=== PATIENT | female | born 1980 | race Caucasian/White ===

== ENCOUNTER 2017-11-27 16:13 | Inpatient (IN) | payer OTHER ==
[~2017-11-27] VITALS: Ht 162.5 cm; Wt 66.5 kg
--- NOTE | ~2017-11-27 | O ---
[place], [place] OPERATIVE NOTE NAME: GILBERTO DE LA TORRE UNIT #: [id number] ROOM: 421 DOCTOR: ARIADNA LO,SOLOMON BIRTHDATE: [birth year] DOS: 11/29/2017 HISTORY OF PRESENT ILLNESS: The patient is a 37-year-old patient who presented to Emergency Room and admitted for severe anemia, guaiac positivity, drop in H and H to 6 and 21. PROCEDURE: Today's procedure part of investigation is panendoscopy plus biopsy. PREMEDICATION: Propofol and Versed. SCOPE: Olympus forward-viewing gastroscope Q10 video. REPORT: After putting the patient in left lateral position and application of lubricant to the scope, the scope was introduced. Thereafter, under direct visualization, advanced through the length of esophagus without difficulty. Lower esophageal varicosity class B was noticed. It is located at 12 o'clock position. Gastritis; otherwise no active ulceration, no obstruction, no gastric varicosities was noticed. Duodenal bulb, second and third part within normal limit. Antral biopsy obtained for H. pylori. The patient extubated, tolerated procedure well. IMPRESSION: No active bleeding at the present time. Gastritis and esophageal varicosity as identified above This patient with a history of aggressive alcohol consumption with alcoholic hepatitis, cirrhosis and portal hypertension and thrombocytopenia, possible presence of ascites and urinary tract infection, exposed to spontaneous bacterial peritonitis as well. All has been recognized. PLAN AND DISCUSSION: We are going to continue with all the supportive medications for diuresis and detox as well as antibiotic coverage for her UTI. Cultures are pending. The definitive pathogen to be addressed. I thank you very much indeed for your kind referral. SOLOMON ROSENTHAL MD CM:OPRECORD:OPERATIVE NOTE [id number] SOLOMON ROSENTHAL MD 11/30/17 0412 interface
--- NOTE | ~2017-11-27 | CON ---
[place], [place] REPORT OF CONSULTATION NAME: GILBERTO DE LA TORRE UNIT #: [id number] ROOM: 421 DOCTOR: ARIADNA LOSOLOMON BIRTHDATE: [birth year] DOS: 11/29/2017 HISTORY OF PRESENT ILLNESS: This is a 37-year-old patient who is presented with a chief complaint of alcohol intoxication, GI bleed, has been admitted through the Emergency Room. The patient was found to have H and H of 7 and 24 with platelet of 96. Comprehensive metabolic panel, electrolytes, hypokalemia has been corrected. Liver function test, SGOT, SGPT of 101 and 103. Her known alcohol level was 149, confirmation of low H and H was undertaken. Her test negative. Troponins were mildly elevated. CBC was reassessed drop in H and H of 6.9 and 21 was noticed. The patient was transfused to 8 and 25 H and H. Comprehensive metabolic panel lately. Electrolytes balanced. Total bilirubin of 10 with SGOT and SGPT of 84 and 19 was noticed. Alkaline phosphatase 96. PAST MEDICAL HISTORY: Aggressive alcohol consumer, cirrhosis, portal hypertension, and esophageal varicosity history. PAST SURGICAL HISTORY: , mandibular surgery and podiatric surgery. SOCIAL HISTORY: Aggressive alcohol and nicotine consumer. FAMILY HISTORY: Noncontributory. ALLERGIES: To no known medications. MEDICATIONS: Medication list has been reviewed. She is on nadolol, spironolactone, thiamine, lactulose, furosemide, famotidine, folic acid, and all supportive care. REVIEW OF SYSTEMS: GENERAL: She is too lethargic to engage in communication. PHYSICAL EXAMINATION: VITAL SIGNS: Stable. HEENT: Head normocephalic, nontraumatic. Eyes deep sclerae icterus was noticed. Mouth and buccal mucosa benign. NECK: Supple neck. LUNGS: No wheeze, no rhonchi. HEART: Normal sinus rhythm. No gallop, no murmur. ABDOMEN: Slightly protuberant, bowel sounds present. Possibility of ascites has to be considered. Umbilical anatomy a slightly protruded. EXTREMITIES: No cyanosis. No pedal edema. NEUROLOGIC: Alert and slow orientation. IMPRESSION: Encephalopathic. Her right flank, superior to her buttock, there is a scar of previous possible trauma secondary to a falling was noticed with a skin abrasion. Chest x-ray and rib x-ray, left basilar atelectasis cannot be ruled out. PLAN AND DISCUSSION: The patient with GI bleed, drop in H and H, status post [place], [place] REPORT OF CONSULTATION NAME: GILBERTO DE LA TORRE UNIT #: [id number] ROOM: [facility] [place] DOCTOR: ARIADNA OL,SOLOMON BIRTHDATE: [birth year] transfusion, thrombocytopenia, cirrhosis secondary to alcohol chronic consumption. We are going to proceed with endoscopic assessment of upper GI tract to ensure there is no active bleeding in upper tract. SOLOMON ROSENTHAL MD CM:CONSTR:REPORT OF CONSULTATION 1646 11/30/17 0406 interface
[2017-11-27 16:21] VITALS: BP 113/65
[2017-11-27 17:09] LABS: BASO # 0.1 10*3/uL (0.0-0.1); BASO % 0.7 % (0.0-1.0); EOS % 0.3 % (1.0-4.0); HEMATOCRIT 24.2 % (37.0-47.0); HEMOGLOBIN 7.9 g/dl (12.0-16.0); LYMPH # 2.1 10*3/uL (1.3-4.4); MEAN CELL VOLUME 104.8 fl (81.0-99.0); MEAN CORPUSCULAR HGB 34.2 pg (27.0-31.0); MEAN CORPUSCULAR HGB CONC 32.6 g/dl (33.0-37.0); MEAN PLATELET VOLUME 9.6 fl (9.6-12.3); MONO # 1.3 10*3/uL (0.1-1.0); MONO % 12.6 % (3.0-9.0); NEUT # 6.5 10*3/uL (2.3-7.9); NEUT % 64.8 % (47.0-73.0); PLATELET COUNT AUTOMATED 96 10*3/uL (130-400); RED BLOOD COUNT 2.31 10*6/uL (4.10-5.10); RED CELL DISTRI WIDTH 15.9 % (0-14.5)
[2017-11-27 17:24] LABS: ALBUMIN 1.8 gm/dl (3.1-4.5); ALKALINE PHOSPHATASE 115 U/L (45-117); BUN 5 mg/dl (7-24); CHLORIDE 93 mmol/L (98-107); CREATININE 0.58 mg/dL (0.55-1.02); SGOT/AST 101 IU/L (3-35); SGPT/ALT 23 U/L (12-78); SODIUM 138 mmol/L (136-145)
[2017-11-27 17:32] LABS: POTASSIUM 2.4 mmol/L (3.5-5.1)
[2017-11-27 17:36] VITALS: BP 108/61
[2017-11-27 18:07] VITALS: BP 125/53
[2017-11-27] MEDS ORDERED: CONSTULOSE10 GM/151 PO (18:36)
[2017-11-27] MEDS ORDERED: CALCIUM CARB500 MG PO (18:37)
[2017-11-27] MEDS ORDERED: VITAMIN B-1100 M1 PO (18:38)
[2017-11-27] MEDS ORDERED: DAILY VITE1 EACH PO (18:38)
[2017-11-27] MEDS ORDERED: ATARAX,VISTARIL10 MG PO (18:39)
[2017-11-27] MEDS ORDERED: LASIX20 MG PO (18:39)
[2017-11-27] MEDS ORDERED: PEPCID40 MG PO (18:41)
[2017-11-27] MEDS ORDERED: NADOLOL20 MG PO (18:41)
[2017-11-27] MEDS ORDERED: NATURE'S BLEND F1 MG PO (18:42)
[2017-11-27] MEDS ORDERED: FERRETTS325 M1 PO (18:43)
[2017-11-27] MEDS ORDERED: MELATONIN10 M4 PO (18:43)
[2017-11-27] MEDS ORDERED: SPIRONOLACTONE25 MG PO (18:45)
[2017-11-27] MEDS ORDERED: SERTRALINE HYDR25 MG PO (18:46)
[2017-11-27 18:58] LABS: BASO # 0.1 10*3/uL (0.0-0.1); BASO % 0.6 % (0.0-1.0); EOS % 0.2 % (1.0-4.0); HEMATOCRIT 22.6 % (37.0-47.0); HEMOGLOBIN 7.4 g/dl (12.0-16.0); LYMPH # 1.8 10*3/uL (1.3-4.4); LYMPH % 20.5 % (27.0-41.0); MEAN CELL VOLUME 105.6 fl (81.0-99.0); MEAN CORPUSCULAR HGB 34.6 pg (27.0-31.0); MEAN CORPUSCULAR HGB CONC 32.7 g/dl (33.0-37.0); MEAN PLATELET VOLUME 9.9 fl (9.6-12.3); MONO % 11.5 % (3.0-9.0); NEUT # 5.8 10*3/uL (2.3-7.9); NEUT % 66.7 % (47.0-73.0); PLATELET COUNT AUTOMATED 87 10*3/uL (130-400); RED BLOOD COUNT 2.14 10*6/uL (4.10-5.10); WHITE BLOOD COUNT 8.7 10*3/uL (4.8-10.8)
[2017-11-27 19:10] LABS: INTERNATIONAL NORM RATIO 2.2 (2.0-3.5)
[2017-11-27 19:14] LABS: ALBUMIN 1.8 gm/dl (3.1-4.5); ALKALINE PHOSPHATASE 107 U/L (45-117); BUN 5 mg/dl (7-24); CHLORIDE 96 mmol/L (98-107); CREATININE 0.53 mg/dL (0.55-1.02); POTASSIUM 2.7 mmol/L (3.5-5.1); SGOT/AST 97 IU/L (3-35); SGPT/ALT 21 U/L (12-78); SODIUM 139 mmol/L (136-145); TOTAL PROTEIN 6.6 gm/dL (6.4-8.2)
[2017-11-27 19:15] LABS: BILIRUBIN 3+ (NEGATIVE); BLOOD 3+ (NEGATIVE); CLARITY CLOUDY (CLEAR); COLOR YELLOW (YELLOW); GLUCOSE NEGATIVE (NEGATIVE); KETONE TRACE (NEGATIVE); LEUKO ESTERASE TRACE (NEGATIVE); NITRITE POSITIVE (NEGATIVE); PH 6.5 (5.0-9.0); SPECIFIC GRAVITY 1.015 (1.005-1.030)
[2017-11-27 19:20] LABS: BACTERIA 4+
[2017-11-27 19:21] LABS: RBC 51-100 rbc/hpf (0-2); WBC 51-100 wbc/hpf (0-5)
[2017-11-27 19:24] LABS: URINE AMPHETAMINES < 1000 (1000ng/ml); URINE BARBITURATES < 200 (200ng/ml); URINE BENZODIAZEPINES < 200 (200ng/ml); URINE CANNABINOIDS (THC) < 50 (50ng/ml); URINE COCAINE < 300 (300ng/ml); URINE METHADONE < 300 (300ng/ml); URINE OPIATES < 300 (300ng/ml)
[2017-11-27 19:27] LABS: URINE PHENCYCLIDINE < 25 (25ng/ml)
[2017-11-27 20:00] VITALS: BP 115/56
[2017-11-28] VITALS (11 sets, daily range): BP systolic 106–144; BP diastolic 56–92
[2017-11-28 03:24] LABS: BASO % 0.5 % (0.0-1.0); EOS % 0.3 % (1.0-4.0); HEMATOCRIT 21.1 % (37.0-47.0); HEMOGLOBIN 6.9 g/dl (12.0-16.0); LYMPH # 1.9 10*3/uL (1.3-4.4); LYMPH % 25.3 % (27.0-41.0); MEAN CELL VOLUME 105.5 fl (81.0-99.0); MEAN CORPUSCULAR HGB 34.5 pg (27.0-31.0); MEAN CORPUSCULAR HGB CONC 32.7 g/dl (33.0-37.0); MONO # 0.7 10*3/uL (0.1-1.0); MONO % 9.4 % (3.0-9.0); NEUT # 4.9 10*3/uL (2.3-7.9); NEUT % 64.1 % (47.0-73.0); PLATELET COUNT AUTOMATED 85 10*3/uL (130-400); RED CELL DISTRI WIDTH 15.9 % (0-14.5); WHITE BLOOD COUNT 7.6 10*3/uL (4.8-10.8)
[2017-11-28 03:30] LABS: BUN 6 mg/dl (7-24); CHLORIDE 99 mmol/L (98-107); CREATININE 0.57 mg/dL (0.55-1.02); POTASSIUM 2.6 mmol/L (3.5-5.1); SODIUM 141 mmol/L (136-145)
[2017-11-28 12:54] LABS: BASO # 0.1 10*3/uL (0.0-0.1); BASO % 0.9 % (0.0-1.0); EOS # 0.1 10*3/uL (0.0-0.4); EOS % 0.6 % (1.0-4.0); HEMATOCRIT 23.4 % (37.0-47.0); MEAN CORPUSCULAR HGB 34.8 pg (27.0-31.0); MEAN CORPUSCULAR HGB CONC 34.2 g/dl (33.0-37.0); MEAN PLATELET VOLUME 10.6 fl (9.6-12.3); MONO # 1.1 10*3/uL (0.1-1.0); MONO % 13.5 % (3.0-9.0); NEUT # 4.7 10*3/uL (2.3-7.9); NEUT % 59.4 % (47.0-73.0); PLATELET COUNT AUTOMATED 75 10*3/uL (130-400); RED CELL DISTRI WIDTH 18.5 % (0-14.5); WHITE BLOOD COUNT 7.9 10*3/uL (4.8-10.8)
[2017-11-28 12:55] LABS: MEAN CELL VOLUME 101.7 fl (81.0-99.0)
[2017-11-29] VITALS (8 sets, daily range): BP systolic 96–110; BP diastolic 38–60
[2017-11-29 07:06] LABS: BASO # 0.1 10*3/uL (0.0-0.1); BASO % 0.8 % (0.0-1.0); EOS # 0.1 10*3/uL (0.0-0.4); EOS % 0.8 % (1.0-4.0); HEMATOCRIT 25.1 % (37.0-47.0); HEMOGLOBIN 8.3 g/dl (12.0-16.0); LYMPH # 2.1 10*3/uL (1.3-4.4); LYMPH % 23.1 % (27.0-41.0); MEAN CELL VOLUME 102.9 fl (81.0-99.0); MEAN CORPUSCULAR HGB CONC 33.1 g/dl (33.0-37.0); MEAN PLATELET VOLUME 10.9 fl (9.6-12.3); MONO # 0.9 10*3/uL (0.1-1.0); MONO % 9.8 % (3.0-9.0); NUCLEATED RED BLOOD CELL 0.2 % (0.0-0.0); PLATELET COUNT AUTOMATED 80 10*3/uL (130-400); RED BLOOD COUNT 2.44 10*6/uL (4.10-5.10); RED CELL DISTRI WIDTH 18.7 % (0-14.5); WHITE BLOOD COUNT 9.3 10*3/uL (4.8-10.8)
[2017-11-29 07:36] LABS: ALBUMIN 1.6 gm/dl (3.1-4.5); ALKALINE PHOSPHATASE 96 U/L (45-117); BUN 7 mg/dl (7-24); CHLORIDE 101 mmol/L (98-107); CREATININE 0.75 mg/dL (0.55-1.02); POTASSIUM 3.5 mmol/L (3.5-5.1); SGOT/AST 84 IU/L (3-35); SGPT/ALT 19 U/L (12-78); SODIUM 141 mmol/L (136-145); TOTAL PROTEIN 6.5 gm/dL (6.4-8.2)
[2017-11-29 07:46] LABS: INTERNATIONAL NORM RATIO 2.1 (2.0-3.5)
[2017-11-30] VITALS: BP 107/54
[2017-11-30 06:49] LABS: BASO # 0.1 10*3/uL (0.0-0.1); BASO % 0.7 % (0.0-1.0); EOS # 0.1 10*3/uL (0.0-0.4); EOS % 0.9 % (1.0-4.0); HEMATOCRIT 25.2 % (37.0-47.0); HEMOGLOBIN 8.2 g/dl (12.0-16.0); LYMPH # 2.2 10*3/uL (1.3-4.4); LYMPH % 23.7 % (27.0-41.0); MEAN CELL VOLUME 104.1 fl (81.0-99.0); MEAN CORPUSCULAR HGB 33.9 pg (27.0-31.0); MEAN CORPUSCULAR HGB CONC 32.5 g/dl (33.0-37.0); MEAN PLATELET VOLUME 10.8 fl (9.6-12.3); MONO # 0.9 10*3/uL (0.1-1.0); MONO % 9.9 % (3.0-9.0); NEUT # 5.9 10*3/uL (2.3-7.9); PLATELET COUNT AUTOMATED 78 10*3/uL (130-400); RED BLOOD COUNT 2.42 10*6/uL (4.10-5.10); RED CELL DISTRI WIDTH 18.9 % (0-14.5); WHITE BLOOD COUNT 9.2 10*3/uL (4.8-10.8)
[2017-11-30 07:29] LABS: ALBUMIN 1.6 gm/dl (3.1-4.5); ALKALINE PHOSPHATASE 97 U/L (45-117); BUN 6 mg/dl (7-24); CHLORIDE 102 mmol/L (98-107); CREATININE 0.72 mg/dL (0.55-1.02); SGOT/AST 75 IU/L (3-35); SGPT/ALT 16 U/L (12-78); SODIUM 140 mmol/L (136-145); TOTAL PROTEIN 6.2 gm/dL (6.4-8.2)
[2017-11-30 08:00] VITALS: BP 112/57
[2017-11-30 12:00] VITALS: BP 108/54
[2017-11-30 16:00] VITALS: BP 102/57
[2017-11-30 20:00] VITALS: BP 110/72
[2017-12-01] VITALS: BP 102/60
[2017-12-01 07:02] LABS: BASO # 0.1 10*3/uL (0.0-0.1); BASO % 0.8 % (0.0-1.0); EOS # 0.1 10*3/uL (0.0-0.4); HEMATOCRIT 24.9 % (37.0-47.0); HEMOGLOBIN 8.1 g/dl (12.0-16.0); LYMPH # 1.7 10*3/uL (1.3-4.4); LYMPH % 19.3 % (27.0-41.0); MEAN CELL VOLUME 106.4 fl (81.0-99.0); MEAN CORPUSCULAR HGB 34.6 pg (27.0-31.0); MEAN CORPUSCULAR HGB CONC 32.5 g/dl (33.0-37.0); MEAN PLATELET VOLUME 10.8 fl (9.6-12.3); MONO # 1.2 10*3/uL (0.1-1.0); MONO % 12.9 % (3.0-9.0); NEUT # 5.9 10*3/uL (2.3-7.9); NEUT % 65.2 % (47.0-73.0); PLATELET COUNT AUTOMATED 75 10*3/uL (130-400); RED BLOOD COUNT 2.34 10*6/uL (4.10-5.10); RED CELL DISTRI WIDTH 18.9 % (0-14.5)
[2017-12-01 07:35] LABS: ALBUMIN 1.5 gm/dl (3.1-4.5); BUN 7 mg/dl (7-24); CHLORIDE 103 mmol/L (98-107); SGOT/AST 62 IU/L (3-35); SGPT/ALT 15 U/L (12-78); SODIUM 140 mmol/L (136-145)
[2017-12-01 07:37] LABS: ALKALINE PHOSPHATASE 107 U/L (45-117); CREATININE 0.87 mg/dL (0.55-1.02)
[2017-12-01 08:26] VITALS: BP 105/57
[2017-12-01 12:00] VITALS: BP 97/52
[2017-12-01 15:48] VITALS: BP 89/43
[2017-12-01 20:00] VITALS: BP 96/34
[2017-12-02] VITALS: BP 108/51
[2017-12-02 06:06] LABS: BASO # 0.1 10*3/uL (0.0-0.1); BASO % 0.6 % (0.0-1.0); EOS # 0.1 10*3/uL (0.0-0.4); EOS % 0.8 % (1.0-4.0); LYMPH # 2.4 10*3/uL (1.3-4.4); LYMPH % 25.4 % (27.0-41.0); MEAN CELL VOLUME 107.3 fl (81.0-99.0); MEAN CORPUSCULAR HGB 34.3 pg (27.0-31.0); MEAN PLATELET VOLUME 10.9 fl (9.6-12.3); MONO # 1.2 10*3/uL (0.1-1.0); MONO % 13.2 % (3.0-9.0); NEUT # 5.5 10*3/uL (2.3-7.9); NEUT % 58.7 % (47.0-73.0); NUCLEATED RED BLOOD CELL 0.2 % (0.0-0.0); RED BLOOD COUNT 2.33 10*6/uL (4.10-5.10); RED CELL DISTRI WIDTH 18.6 % (0-14.5); WHITE BLOOD COUNT 9.4 10*3/uL (4.8-10.8)
[2017-12-02 06:14] LABS: PLATELET COUNT AUTOMATED 73 10*3/uL (130-400)
[2017-12-02 06:17] LABS: ALBUMIN 1.4 gm/dl (3.1-4.5); ALKALINE PHOSPHATASE 105 U/L (45-117); BUN 3 mg/dl (7-24); CHLORIDE 105 mmol/L (98-107); PHOSPHOROUS 2.5 mg/dL (2.5-4.9); POTASSIUM 3.2 mmol/L (3.5-5.1); SGOT/AST 55 IU/L (3-35); SGPT/ALT 12 U/L (12-78); SODIUM 142 mmol/L (136-145); TOTAL PROTEIN 6.1 gm/dL (6.4-8.2)
[2017-12-02 08:00] VITALS: BP 106/50
[2017-12-02] MEDS ORDERED: PROPRANOLOL HCL10 MG PO (10:41)
== END 2017-12-02 12:49 | DRG 896 ==
LOC: ED 16:13 → EDHOLD 16:40 → 4E 16:40
PROVIDERS: Internal Medicine; Nurse Practitioner Family
PROC: 30233N1 Transfusion of Nonautologous Red Blood Cells into Peripheral Vein, Percutaneous Approach (ICD-10-PCS; 2017-11-28)
PROC: 0DB68ZX Excision of Stomach, Via Natural or Artificial Opening Endoscopic, Diagnostic (ICD-10-PCS; principal; 2017-11-29)
DX: F10.29 Alcohol dependence with unspecified alcohol-induced disorder (principal); E43 Unspecified severe protein-calorie malnutrition; J96.01 Acute respiratory failure with hypoxia; D69.6 Thrombocytopenia, unspecified; I85.10 Secondary esophageal varices without bleeding; K70.10 Alcoholic hepatitis without ascites; F10.239 Alcohol dependence with withdrawal, unspecified; E83.51 Hypocalcemia; N39.0 Urinary tract infection, site not specified; K29.70 Gastritis, unspecified, without bleeding; K70.30 Alcoholic cirrhosis of liver without ascites; F41.9 Anxiety disorder, unspecified; D53.9 Nutritional anemia, unspecified; E87.6 Hypokalemia; R74.0 Nonspecific elevation of levels of transaminase and lactic acid dehydrogenase [LDH]; R79.89 Other specified abnormal findings of blood chemistry; Z72.0 Tobacco use; Z71.6 Tobacco abuse counseling; Z79.899 Other long term (current) drug therapy; Z98.891 History of uterine scar from previous surgery; Z68.25 Body mass index [BMI] 25.0-25.9, adult